=== PATIENT | male | born 1970 | race Caucasian/White ===

== ENCOUNTER 2017-03-06 15:04 | Emergency (ER) | payer OTHER ==
[~2017-03-06] VITALS: Ht 175.3 cm; Wt 94.0 kg
[~2017-03-06 15:04] MED LIST: CITA40TA12 PO; LEVO50TA6 PO; NAPR-1169 PO; PRLSR20 PO; VNTHFA/IN INH
[2017-03-06 15:05] VITALS: Ht 175.3 cm; Wt 94.0 kg
[2017-03-06] MEDS ORDERED: LIDO/EPINEPHRINE/SOD BICARB 20 ML VIAL INFIL ONE (15:10)
[2017-03-06] MEDS ORDERED: MoRPHine SULFATE 10 MG/ML CARP/VIAL IV STA (15:13)
[2017-03-06] MEDS ORDERED: ONDANSETRON INJ 2 MG/ML 2 ML VIAL IV STA (15:13)
--- NOTE | 2017-03-06 15:23 | EMERGENCY ROOM VISIT NOTE ---
History First contact with patient: 15:06 Chief Complaint: FACIAL PAIN/INJURY Stated Complaint: HIT IN THE MOUTH/BLEEDING-WORK RELATED INJURY History of Present Illness The patient is a 46 year old male who presents to the Emergency Room with complaints of facial trauma. The patient states he was at work and was winterizing a pool when something exploded and a metal lid struck him in the mouth. He reports lacerations to the chin and feeling like his teeth are chipped. He does not take any blood thinners. He denies loss of consciousness. He rates his discomfort a 9/10. He denies any other injuries. He denies any neck pain or difficult breathing. Review of Systems A complete 10 point review of systems was reviewed with the patient with pertinent positives and negatives as per history of present illness. All else were negative. Past Medical/Surgical History Medical Problems: (1) Depression Social History Smoking Status: Current Every Day Smoker Marital Status: Occupation Status: employed Current/Historical Medications Scheduled Amoxicillin & Pot Clavulanate (Augmentin 875-125 mg), 1 TAB PO BID Chlorhexidine Gluconate (Mouth (Peridex), 15 ML PO BID Citalopram Hydrobromide (Celexa), 40 MG PO DAILY Levothyroxine Sodium (Levothyroxine Sodium), 50 MCG PO DAILY Omeprazole (Prilosec), 20 MG PO QAM Scheduled PRN Albuterol Hfa (Ventolin Hfa), 2 PUFF INH Q4 PRN for Cough Oxycodone Ir (Roxicodone Ir), 1-2 TAB PO Q4H PRN for Pain Physical Exam Vital Signs Date Time Temp Pulse Resp B/P (MAP) Pulse Ox O2 Delivery O2 Flow Rate FiO2 03/06/17 18:23 67 18 137/92 95 Room Air 03/06/17 17:04 74 18 153/103 98 Room Air 03/06/17 15:05 73 20 186/123 97 Physical Exam VITALS: Vitals are noted on the nurse's note and reviewed by myself. Vital signs stable. GENERAL: This is a 46-year-old male, in no acute distress, nondiaphoretic, well- developed well-nourished. SKIN: There are multiple facial lacerations. There is a laceration of the chin which measures 4 cm. There is a laceration just superior tenderness which is stellate in nature and measures 3 cm. There is a curvilinear laceration inferior to the lower lip which does cross the vermilion border at 2 places and measures 3.5 cm. There are 2 lacerations of the lower lip with each measuring 1.5 cm. There are a few small tooth fragment in the left-sided lip laceration. There are otherwise no foreign bodies. There is a small amount of active bleeding. HEAD: Normocephalic atraumatic. EARS: External auditory canals clear, tympanic membranes pearly hugo without erythema or effusion bilaterally. No hemotympanum. EYES: Pupils equal round and reactive to light and accommodation. Extraocular movements intact. NOSE: No bleeding from the naris. MOUTH: There is a laceration where the left lower lip meets the lower gums. There is no visible bone in the laceration. NECK: Supple without nuchal rigidity. Cervical spine is nontender. HEART: Regular rate and rhythm without murmurs gallops or rubs. LUNGS: Clear to auscultation bilaterally without wheezes, rales or rhonchi. NEURO: Patient was alert and oriented to person place and time. Normal sensation to light and sharp touch. Medical Decision & Procedures ER Provider Diagnostic Interpretation: HEAD WITHOUT CONTRAST (CT) Findings: The paranasal sinuses and mastoid air cells are clear. The calvarium and skull base are intact. The ventricles and sulci are within normal limits. There is no mass, hematoma, midline shift, or acute infarct. Impression: No acute intracranial abnormality. CT SCAN OF THE FACIAL BONES WITHOUT IV CONTRAST FINDINGS: The skeletal structures are well mineralized. There is fracture through the base of the nasal spine of the maxilla. Fracture extends through the alveolar process of the right central maxillary incisor. There is lucency around the socket of the right central maxillary incisor, likely representing luxation. There is also fracture seen through the anterior mandible between both the central incisors as well as the right lateral incisor. There is also lucency around both mandibular incisors and the right lateral mandibular incisor. This also likely represents luxation. Small radiodensities are present anterior to the mandible, and may represent foreign bodies versus tooth fragments. The remainder of the mandible appears intact. The bony orbits are intact and the orbital contents are within normal limits. The zygomatic arches, nasal bones, and pterygoid plates are preserved. The temporomandibular joints are maintained. There are no layering blood products within the paranasal sinuses. The sinuses and mastoids are clear. The visualized calvarium and upper cervical spine are maintained. There is near-complete bony fusion of the posterior elements on the left at C3-C4. Partially imaged brain parenchyma is within normal limits. Soft tissue injury is noted in the chin. IMPRESSION: 1. There is fracture through the base of the nasal spine of the maxilla, which extends through the alveolar process of the right central maxillary incisor. 2. There is lucency around the socket of the right central maxillary incisor, likely representing luxation. 3. There is also subtle nondistracted fracture through the anterior mandible involving the alveolar sockets of both central incisors as well as the right lateral incisor. There may also be luxation of these teeth. 4. Follow-up with dentistry is recommended. 5. Small radiodensities anterior to the mandible likely represent foreign bodies versus tooth fragments. 6. No additional facial bone fracture is identified. Medications Administered Medications (Trade) Dose Ordered Sig/Waylon Route Start Time Stop Time Status Last Admin Dose Admin Morphine Sulfate (MoRPHine SULFATE INJ) 8 mg NOW STAT IV 03/06/17 15:13 03/06/17 15:51 DC 03/06/17 15:24 8 MG Ondansetron HCl (Zofran Inj) 4 mg NOW STAT IV 03/06/17 15:13 03/06/17 15:51 DC 03/06/17 15:23 4 MG Diphtheria/ Pertussis/Tetanus Vacc (Adacel Inj) 0.5 ml ONCE ONCE IM. 03/06/17 18:15 03/06/17 18:16 DC 03/06/17 18:26 0.5 ML Procedure Verbal consent was obtained to perform the procedure. Using sterile technique the wounds were cleansed with Betadine. The areas were sterilely draped. A total of 9 ml of 1% buffered lidocaine with epinephrine was used to anesthetize the lacerations. Once the patient was anesthetized, the wounds were copiously irrigated under pressure with sterile saline. The wounds were explored and were as described in the exam section. The most inferior chin laceration was repaired using 9 simple interrupted 6-0 nylon sutures. The chin laceration superior to this was repaired using 6 simple interrupted 6-0 nylon sutures. The laceration inferior to the lower lip was closed using 9 simple interrupted 6 -0 nylon sutures with wound edges and vermilion border being well approximated. The right lower lip laceration was repaired using 2 simple interrupted 6-0 nylon sutures. The left lower lip laceration was repaired using 4 simple interrupted 6-0 nylon sutures. The inner lip/thumb laceration was repaired using 4 simple interrupted 5-0 Vicryl sutures. The patient tolerated the procedure well. Hemostasis was achieved. The areas were cleaned with sterile saline and the chin lacerations were dressed with bacitracin ointment. ED Course The patient was evaluated as above. Labs were drawn and IV access was obtained. Patient was medicated with 8 mg morphine IV and [address] of the head and facial bones were performed and read by radiology as above. Case was discussed with Dr. Ruiz of maxillofacial surgery. He recommended closing the lacerations and will follow-up with the patient in the office this week. Laceration repair was performed as noted in the procedure section. Discharge instructions were reviewed with the patient. The patient verbalized understanding of my assessment and treatment plan and was discharged home in good condition. Medical Decision Differential diagnosis includes facial laceration, facial fracture, open fracture, intracranial hemorrhage, among others. The patient is a 46-year-old male who presents today complaining of a facial injury. CT the head was unremarkable. CT of the facial bones did show nondisplaced fracture of the mandible as well as minor fractures of the maxilla. None of these fractures appear to be open on exam. Multiple lacerations were repaired as noted above. Case was discussed with maxillofacial surgery who recommended having the patient follow-up in the office or with his general dentist due to multiple injuries of the teeth. Patient will be placed on Augmentin prophylactically due to the extent of the facial injuries. He was given a prescription for pain medication. He verbalized understanding of my assessment and treatment plan and was discharged home in good condition. The patient's case was reviewed with Dr. Naranjo, ED attending physician, who agreed with my assessment and treatment plan. [place] Drug Monitoring Program Search Results: patient reviewed within database, no issues identified Medication Reconcilliation Current Medication List: was personally reviewed by me Blood Pressure Screening Patient's blood pressure: Elevated blood pressure Blood pressure disposition: Elevated BP felt to be situational Impression Primary Impression: Mandible fracture Additional Impressions: Maxillary fracture Dental injury Laceration of multiple sites of face Departure Information Dispostion Home / Self-Care Condition GOOD Prescriptions Chlorhexidine Gluconate (Mouth (PERIDEX) 0.12 % Augustina 15 ML PO BID for 7 Days, #210 ML Prov: Licha Woods PA-C 03/06/17 Oxycodone Ir (Roxicodone Ir) 5 Mg Tab 1-2 TAB PO Q4H Y for Pain, #30 TAB For Initial Treatment Prov: Licha Woods PA-C 03/06/17 Amoxicillin & Pot Clavulanate (Augmentin 875-125 mg) 1 Tab Tab 1 TAB PO BID for 7 Days, #14 TAB Prov: Licha Woods PA-C 03/06/17 Referrals No Doctor, Assigned (PCP) Alexander Ruiz D.M.D. Peterson, Emily A., MD Patient Instructions My [facility] Additional Instructions You have received 30 sutures on your face. These sutures are NOT dissolvable and WILL need to be removed by a health care provider in 7 days. You can return to the Emergency Department or contact your Primary Care Provider to have the sutures removed. You also received 4 sutures inside of your mouth which will dissolve/fall out on their own. Use the chlorhexidine solution twice daily while the sutures are in place. You were prescribed Augmentin to be taken twice daily. This is an antibiotic. All antibiotics have the potential to cause diarrhea. Stop this medication and contact a medical provider if you were to develop any significant adverse side effects including: wheezing, shortness of breath, passing out, vomiting, or a diffuse rash. Always take antibiotics as directed and COMPLETE the ENTIRE course regardless of the improvement of your symptoms. Call Dr. Ruiz tomorrow to schedule a follow-up appointment. He should be able to see you in the office tomorrow. You may follow up with Dr. Perez (plastic surgery) if there is any concern about scarring. Apply an antibiotic ointment to the sutures on the chin daily for the next 4-5 days, then you may allow them to dry. Look for signs of infection of the wound including: increased pain, swelling, foul discharge, streaking, or increased temperature. If any of these are noticed you should return to the Emergency Department for further assessment and treatment. As with any laceration you may have received nerve damage to the surrounding tissues. This damage may or may not be permanent. You should keep the area covered with sunscreen for the first 6 months to 1 year when at risk for exposure to help minimize scarring. You can also use scar reducing creams or Vitamin E oil to help minimize scarring. For pain control, you can use the following [id number] medicines (if >12 yo): - Regular strength (325mg/tab) Tylenol (acetaminophen) 2 tabs every 4-6 hours as needed. Do not exceed 12 tablets in a 24 hour period. Avoid taking more than 4 grams (4000 mg) of Tylenol per day. This includes any other sources of acetaminophen you may take on a regular basis. - Regular strength (200 mg/tab) Advil (ibuprofen) 1-2 tabs every 4-6 hours as needed. Do not exceed a dose of 3200 mg per day. Return to the emergency department if your symptoms worsen despite treatment course outlined above. Problem Qualifiers
--- NOTE | 2017-03-06 15:43 | DIAGNOSTIC IMAGING REPORT ---
HEAD WITHOUT CONTRAST (CT) CT DOSE: 877.83 mGy.cm HISTORY: Trauma facial injury TECHNIQUE: Multiaxial CT images of the head were performed without the use of intravenous contrast. A dose lowering technique was utilized adhering to the principles of ALARA. Comparison: None. Findings: The paranasal sinuses and mastoid air cells are clear. The calvarium and skull base are intact. The ventricles and sulci are within normal limits. There is no mass, hematoma, midline shift, or acute infarct. Impression: No acute intracranial abnormality. The above report was generated using voice recognition software. It may contain grammatical, syntax or spelling errors. Electronically signed by: Cristhian Alvarez M.D. 03/06/2017 3:41 PM Dictated Date/Time: 03/06/2017 3:40 PM
--- NOTE | 2017-03-06 15:56 | DIAGNOSTIC IMAGING REPORT ---
CT SCAN OF THE FACIAL BONES WITHOUT IV CONTRAST CLINICAL HISTORY: Facial injury. COMPARISON STUDY: CT of the brain performed concurrently on 03/06/2017. TECHNIQUE: High-resolution CT scan of the facial bones is performed. Images are reviewed in the axial, sagittal, and coronal planes. IV contrast was not administered for this examination. A dose lowering technique was utilized adhering to the principles of ALARA. FINDINGS: The skeletal structures are well mineralized. There is fracture through the base of the nasal spine of the maxilla. Fracture extends through the alveolar process of the right central maxillary incisor. There is lucency around the socket of the right central maxillary incisor, likely representing luxation. There is also fracture seen through the anterior mandible between both the central incisors as well as the right lateral incisor. There is also lucency around both mandibular incisors and the right lateral mandibular incisor. This also likely represents luxation. Small radiodensities are present anterior to the mandible, and may represent foreign bodies versus tooth fragments. The remainder of the mandible appears intact. The bony orbits are intact and the orbital contents are within normal limits. The zygomatic arches, nasal bones, and pterygoid plates are preserved. The temporomandibular joints are maintained. There are no layering blood products within the paranasal sinuses. The sinuses and mastoids are clear. The visualized calvarium and upper cervical spine are maintained. There is near-complete bony fusion of the posterior elements on the left at C3-C4. Partially imaged brain parenchyma is within normal limits. Soft tissue injury is noted in the chin. IMPRESSION: 1. There is fracture through the base of the nasal spine of the maxilla, which extends through the alveolar process of the right central maxillary incisor. 2. There is lucency around the socket of the right central maxillary incisor, likely representing luxation. 3. There is also subtle nondistracted fracture through the anterior mandible involving the alveolar sockets of both central incisors as well as the right lateral incisor. There may also be luxation of these teeth. 4. Follow-up with dentistry is recommended. 5. Small radiodensities anterior to the mandible likely represent foreign bodies versus tooth fragments. 6. No additional facial bone fracture is identified. Electronically signed by: Ranjith Bass M.D. 03/06/2017 3:54 PM Dictated Date/Time: 03/06/2017 3:41 PM
[2017-03-06] MEDS ORDERED: AMOX875T PO (18:04)
[2017-03-06] MEDS ORDERED: OXYC1TAB3 PO (18:04)
[2017-03-06] MEDS ORDERED: CHLO0.1222 PO (18:06)
[2017-03-06] MEDS ORDERED: DIPHTHERIA/TETANUS/PERTUSSIS 0.5 ML SYR/VIAL IM. ONE (18:15)
[2017-03-06 18:23] VITALS: BP 137/92; PULSE 67; O2SAT 95
== END 2017-03-06 18:46 | disposition home or self-care (01) ==
LOC: C.EDB 15:06 → C.EDC 18:46
DX: S01.81XA Laceration without foreign body of other part of head, initial encounter (principal); S01.511A Laceration without foreign body of lip, initial encounter; S02.609A Fracture of mandible, unspecified, initial encounter for closed fracture; S02.40CA Maxillary fracture, right side, initial encounter for closed fracture; S00.502A Unspecified superficial injury of oral cavity, initial encounter; W22.8XXA Striking against or struck by other objects, initial encounter; Y92.89 Other specified places as the place of occurrence of the external cause; Y99.0 Civilian activity done for income or pay; F32.9 Major depressive disorder, single episode, unspecified; F17.210 Nicotine dependence, cigarettes, uncomplicated; Z79.899 Other long term (current) drug therapy